=== PATIENT | male | born 1945 | race Caucasian/White ===

== ENCOUNTER 2023-06-22 09:01 | Outpatient (RCR) | payer MEDICARE, OTHER, SELFPAY | END 2023-06-22 23:59 | disposition home or self-care (01) | LOC: RPT 09:01 | PROVIDERS: ATTENDING PHYSICIAN Physical Medicine & Rehabilitation; FAMILY PHYSICIAN Internal Medicine | DX: M47.814 Spondylosis without myelopathy or radiculopathy, thoracic region (principal); Z73.6 Limitation of activities due to disability | CPT/HCPCS: 97010; 97110; 97162 ==

== ENCOUNTER → 2023-07-14 07:41 | Outpatient (REF) | payer MEDICARE, OTHER, SELFPAY | LOC: RAD 07:41 | PROVIDERS: ATTENDING PHYSICIAN Surgery Vascular Surgery; FAMILY PHYSICIAN Internal Medicine | DX: I73.9 Peripheral vascular disease, unspecified (principal) | CPT/HCPCS: 93922; 93925 ==

== ENCOUNTER 2023-07-20 06:54 | Outpatient (RCR) | payer MEDICARE, OTHER, SELFPAY | END 2023-07-20 23:59 | disposition home or self-care (01) | LOC: RPT 06:54 | PROVIDERS: ATTENDING PHYSICIAN Physical Medicine & Rehabilitation; FAMILY PHYSICIAN Internal Medicine | DX: M47.814 Spondylosis without myelopathy or radiculopathy, thoracic region (principal); M47.816 Spondylosis without myelopathy or radiculopathy, lumbar region; M51.26 Other intervertebral disc displacement, lumbar region; Z73.6 Limitation of activities due to disability; R26.89 Other abnormalities of gait and mobility | CPT/HCPCS: 97010; 97110 ==

== ENCOUNTER 2023-08-08 06:09 | Day surgery (SDC) | payer MEDICARE, OTHER, SELFPAY ==
[2023-08-08] VITALS (22 sets, daily range): BP systolic 124–164; BP diastolic 44–70; BMI 27.5
[2023-08-08] MEDS: NSS 500 IV ×2 (06:30)
[2023-08-08 06:52] LABS: Hematocrit 40.9 % (39.0-52.0); Hemoglobin 13.5 g/dL (13.0-18.0); Mean Corpuscular Volume 96.9 fL (80.0-94.0); Mean Platelet Volume 10.8 fL (7.4-10.4); Platelet Count 156 10^3/uL (130-400); Red Blood Cell Count 4.22 10^6/uL (4.70-6.10); Red Cell Dist. Width 13.5 % (11.5-14.5); White Blood Cell Count 3.5 10^3/uL (4.8-10.8)
[2023-08-08 06:59] LABS: APTT 33.8 Sec (23.4-35.0); Blood Urea Nitrogen 17 mg/dl (9-20); Calcium 9.2 mg/dl (8.4-10.2); Carbon Dioxide 29 mmol/L (22-30); Chloride 104 mmol/L (98-107); Estimated Creatinine Clearance 53 ml/min; Glucose 106 mg/dl (70-99); INR 1.26; PT 15.6 Sec (11.4-14.6); Sodium 141 mmol/L (135-145); eGFR > 60.00
--- NOTE | 2023-08-08 07:10 | W.SUR.PREOP ---
Pre-Operative Surgical Note
-
I have examined this patient prior to the performance of the scheduled procedure.
The patient's condition is unchanged from the time of the current History and
Physical and the patient is able to undergo the scheduled procedure.
--- NOTE | 2023-08-08 08:18 | W.SUR.POST ---
Surgical Immediate Post Op
Note
Pre Op Diagnosis: PAD
Post Op Diagnosis: same
Procedure Performed: Right lower extremity arteriogram, balloon angioplasty right common iliac artery
Primary Surgeon: Sean
Anesthesia: Local and sedation
Estimated Blood Loss: <2cc
Fluids: See anesthesia flowsheet
Drains/Shunts: none
Specimens/Cultures: None
Doppler/Duplex/Angio (Y/N): Y
Complications: None
Operative Findings: Successful angioplasty
[2023-08-08] MEDS: NSS 1000 IV (09:55)
--- NOTE | 2023-08-08 11:01 | PTCARENOTE ---
Dr Estrada at pt bedside speaking to pt.
--- NOTE | 2023-08-08 11:40 | PTCARENOTE ---
Pt c/o LLQ abdominal pain rated 2/10 and described as 'aching'. Left groin site clean, dry, and intact. No bleeding or hematoma noted. Sharona FORD made aware via tigertext. Awaiting response. Will continue to monitor.
--- NOTE | 2023-08-08 12:10 | PTCARENOTE ---
Sharona FORD at pt bedside assessing pt's LLQ discomfort. Sharona FORD asked pt to attempt to urinate via urinal at this time to see of that gives pt some relief. No further treatment ordered at this time. Will continue to monitor.
--- NOTE | 2023-08-08 12:27 | W.PN.UPDATE ---
Addendum entered and electronically signed by LOGAN Jorgensen 08/08/23 14:59:
Pt was able to void with full pain relief. Ready for discharge
Original Note:
Update Note
Progress Note Update
Pt complaining of RLQ and suprapublic discomfort. tender to palpation. left groin site soft, NT, c/d/i. Pt voided small amount with no relief to abdominal pain. Bladder scan revealed greater than 600. Straight cath ordered
--- NOTE | 2023-08-08 12:43 | PTCARENOTE ---
Addendum entered by Rufina Forman RN 08/08/23 12:51:
Sharona FORD states to hold cat scan for now until after straight cath.
Original Note:
Sharona FORD ordered to bladder scan pt for abdominal pain. Pt bladder scanned for >652 ml urine. Sharona FORD made aware and ordered to straight cath pt.
--- NOTE | 2023-08-08 12:50 | PTCARENOTE ---
Sharona FORD ordered a CT abdomen for pt's abdominal pain. Sharona FORD asked to bladder scan pt before cat scan.
--- NOTE | 2023-08-08 13:10 | PTCARENOTE ---
After explaining to the pt multiple times the importance of straight cath, pt is declining and asking to speak to Sharona FORD. Pt states he is having less pain and doesn't understand why he can't wait an hour or so until he can get out of bed.
Awaiting Sharona's arrival.
--- NOTE | 2023-08-08 13:19 | PTCARENOTE ---
Sharona FORD at pt bedside speaking to pt about straight cath.
--- NOTE | 2023-08-08 13:20 | PTCARENOTE ---
Sharona FORD spoke to pt and agreed to allow pt to ambulate to bathroom 5 hours post hemostasis. Will get pt out of bed 5 hours post hemostasis to ambulate pt to the bathroom.
--- NOTE | 2023-08-08 14:15 | PTCARENOTE ---
Pt ambulated to the bathroom without difficulty. Pt states he urinated in 'his normal pattern.' Sharona FORD made aware and states pt ok for discharge at 2:30pm as scheduled.
--- NOTE | 2023-08-08 14:16 | PTCARENOTE ---
Dr Estrada at pt bedside speaking to pt.
--- NOTE | 2023-08-08 15:50 | OR.RPT ---
Operative Report
Operative Report
PROCEDURE DATE: 08/08/2023
Preoperative diagnosis: Debilitating right calf claudication.
Postoperative diagnosis: Same
Procedure:
1. Duplex assisted left common femoral artery cannulation.
2. Aortogram and pelvic angiogram.
3. Right lower extremity arteriogram with third order vessel catheterization of right superficial femoral artery via left common femoral artery puncture.
4. Balloon angioplasty of right common iliac artery with 8 mm angioplasty balloon.
5. Left femoral angiogram.
6. Supervision and interpretation.
Surgeon: Sean
Substance Addiction Coordinator: None
Complications: None
Anesthesia: Local, sedation
Fluoroscopy:
18.3 min
151 mGy
22.07 Gy.cm2
Indications for procedure:
Patient with severe right lower extremity claudication brought for angiography. Risk/benefits/alternatives all fully discussed. Patient understood all wish to proceed.
Description of procedure:
Patient was identified, brought to the operating room. Placed on the table in the supine position. After the adequate administration of anesthesia, the patient was prepped and draped in the standard surgical fashion. A standard preoperative
timeout was undertaken and everybody was in agreement with the plan.
The left common femoral artery was accessed with a micropuncture kit under direct duplex ultrasound guidance. A 5 [place] sheath was then advanced over a 0.035 inch wire, and a lopez's hook catheter was advanced into the abdominal aorta.
Aortogram and pelvic angiogram was obtained. Findings as follows:
Infrarenal aorta: [Patent with no significant stenosis]
Right common iliac artery: Patent with moderate to high-grade proximal stenosis with irregular plaque.
Right external iliac artery:[Patent with no significant stenosis]
Left common iliac artery:[Patent with no significant stenosis]
Left external iliac artery:[Patent with no significant stenosis]
Using a floppy angled hydrophilic wire, the right common femoral artery was cannulated and the catheter was advanced. Right lower extremity arteriogram was obtained. Findings as follows:
Common femoral artery: Patent with no significant stenosis.
Profunda femoris artery: Patent with no significant stenosis.
Superficial femoral artery: Diffuse areas of heavy plaque. Alternating areas of mild to moderate stenoses. Heavy plaque noted even on plain fluoroscopy. Distal superficial femoral artery with focal 1 cm occlusion with heavy bulky plaque noted.
Reconstituted distal SFA and popliteal flow.
Popliteal artery: Abyaz-rmo-bxxj popliteal artery with luminal irregularities, behind the knee popliteal artery with opacity suggesting fairly bulky plaque. Extending into the below the knee segment. However the vessel is patent.
Anterior tibial artery: Patent with no significant stenosis, some luminal irregularities proximally. Distally on the foot the dorsalis pedis is a very small string-like artery with collateralization.
Tibial peroneal trunk: Patent with eccentric calcified plaque, but no significant stenosis.
Peroneal artery: Patent proximally but became diminutive more distally and no significant filling distally at the ankle noted.
Posterior tibial artery: Patent proximally and then severely stenotic and then occluded.
At this point I selectively cannulated the right superficial femoral artery and then exchanged for a 6 [place] up and over sheath. The patient was given an appropriate dose of heparin. Next using a flopping on hydrophilic wire and a CXI catheter
was able to gain wire access into the distal superficial femoral artery. I got to the region of occlusion. I then tried multiple times to traverse the occlusion intraluminally. Was unable to do so. I therefore then exchanged for a 0.014 inch
wire (steerable) and tried with that. Unable to do so. I therefore then used a 0.035 inch floppy hydrophilic wire again and tried subintimal he. However again was unable to. The plaque was too bulky. This was not achievable. Therefore at this
point I felt nothing further endovascularly to offer for the SFA stenosis/disease. At this point I then withdrew my sheath to the origin of the right common iliac artery and reimage that area. I confirmed severe irregular plaque resulting in
stenosis. Next I used an 8 mm angioplasty balloon to balloon angioplasty of that segment. Completion angiogram demonstrated excellent result with no significant residual stenosis. At this point is very satisfied. Left femoral angiogram
demonstrated good puncture in the left common femoral artery. Therefore the wires and catheters were withdrawn. The sheath was withdrawn and manual pressure was applied to the puncture site. Patient was given protamine to reverse the heparin.
Hemostasis in the left groin was fully achieved.
The patient tolerated procedure well.
== END 2023-08-08 14:35 | disposition home or self-care (01) ==
LOC: CATH 06:09
PROVIDERS: ATTENDING PHYSICIAN Surgery Vascular Surgery; FAMILY PHYSICIAN Internal Medicine
DX: I70.211 Atherosclerosis of native arteries of extremities with intermittent claudication, right leg (principal); I10 Essential (primary) hypertension; J45.909 Unspecified asthma, uncomplicated; E78.5 Hyperlipidemia, unspecified; M51.36 Other intervertebral disc degeneration, lumbar region; I25.10 Atherosclerotic heart disease of native coronary artery without angina pectoris; Z79.01 Long term (current) use of anticoagulants
CPT/HCPCS: 37220; C1725; 75625; 75716; 76937; 80048; 85027; 85610; 85730; 86850; 86900; 86901; C1769; C1887; C1894

== ENCOUNTER 2023-08-19 06:19 | Outpatient (RCR) | payer MEDICARE, OTHER, SELFPAY | END 2023-08-19 23:59 | disposition home or self-care (01) | LOC: RPT 06:19 | PROVIDERS: ATTENDING PHYSICIAN Physical Medicine & Rehabilitation; FAMILY PHYSICIAN Internal Medicine | DX: M47.814 Spondylosis without myelopathy or radiculopathy, thoracic region (principal); M47.816 Spondylosis without myelopathy or radiculopathy, lumbar region; M51.36 Other intervertebral disc degeneration, lumbar region; Z73.6 Limitation of activities due to disability | CPT/HCPCS: 97010; 97110; 97112 ==

== ENCOUNTER → 2023-09-08 09:56 | Outpatient (REF) | payer MEDICARE, OTHER, SELFPAY | LOC: RAD 09:56 | PROVIDERS: ATTENDING PHYSICIAN Surgery Vascular Surgery; FAMILY PHYSICIAN Internal Medicine | DX: I73.9 Peripheral vascular disease, unspecified (principal) | CPT/HCPCS: 93922; 93925; 93978 ==

== ENCOUNTER 2023-09-09 19:16 | Emergency (ER) | payer MEDICARE, OTHER, SELFPAY ==
[2023-09-09 19:21] VITALS: BP 174/117
[2023-09-09 19:43] LABS: % Basophils 0.2 % (0-2); % Eosinophils 2.2 % (0-6); % Immature Granulocytes 0.2 % (0-0.5); % Lymphocytes 29.4 % (20.5-51.1); % Monocytes 10.3 % (1.7-9.3); % Neutrophils 57.7 % (42.2-75.2); Absolute Eosinophils 0.1 10^3/uL (0-0.7); Absolute Lymphocytes 1.5 10^3/uL (1.2-3.4); Absolute Monocytes 0.5 10^3/uL (0.1-0.6); Absolute Neutrophils 2.9 10^3/uL (1.4-6.5); Hematocrit 39.1 % (39.0-52.0); Hemoglobin 13.5 g/dL (13.0-18.0); Mean Corp Hgb Conc. 34.5 g/dL (33.0-37.0); Mean Corpuscular Volume 92.7 fL (80.0-94.0); Mean Platelet Volume 10.2 fL (7.4-10.4); Nucleated Red Blood Cells % 0 % (-); Platelet Count 141 10^3/uL (130-400); Red Blood Cell Count 4.22 10^6/uL (4.70-6.10); Red Cell Dist. Width 13.4 % (11.5-14.5); White Blood Cell Count 4.9 10^3/uL (4.8-10.8)
[2023-09-09 19:58] LABS: ALT (SGPT) 36 U/L (0-50); AST (SGOT) 38 U/L (17-59); Albumin 4.7 g/dl (3.5-5.0); Alkaline Phosphatase 53 U/L (38-126); Blood Urea Nitrogen 21 mg/dl (9-20); Calcium 9.8 mg/dl (8.4-10.2); Carbon Dioxide 29 mmol/L (22-30); Chloride 102 mmol/L (98-107); Glucose 100 mg/dl (70-99); Potassium 4.2 mmol/L (3.5-5.1); Sodium 138 mmol/L (135-145); Total Bilirubin 0.8 mg/dl (0.2-1.3); Total Protein 7.4 g/dl (6.3-8.2); eGFR > 60.00
[2023-09-09 20:05] LABS: Troponin I < 0.012 ng/ml
[2023-09-09 21:07] VITALS: BP 193/81
[2023-09-09] MEDS: APRESOLINE 10 MG PO (21:21)
[2023-09-09 21:30] VITALS: BMI 27.5
[2023-09-09 21:42] LABS: INR 1.71; PT 19.9 Sec (11.4-14.6)
[2023-09-09 22:00] VITALS: BP 175/69
--- NOTE | 2023-09-09 22:07 | ED.GENMED ---
History of Present Illness
General
Chief Complaint: Blood Pressure Problem
Source: patient
Time Seen by Provider: 09/09/23 20:38
Travel History
Have you had any contact with someone who has COVID-19?: No
Do you have any symptoms of coronavirus? Fever > 100 degrees, chills, cough, shortness of breath, sore throat, loss of taste or smell, muscle aches, or headache?: No
History of Present Illness
History of Present Illness:
78-year-old male presents to the emergency room complaining of elevated blood pressure. Patient states he has been experiencing elevated blood pressure for the past couple weeks. His primary care doctor added hydrochlorothiazide yesterday to his
medication regiment. Patient states he feels shaky but denies headache, chest pain, shortness of breath. Because it has been elevated he is checking his blood pressure frequently. Patient has been taking vitamin K recently as a supplement.
Past History
Past History
ED Past Medical History: Arrthythmia (AFib), CAD, Hypercholesterolemia and Valvular disease
ED Past Surgical History: Cardiac
Social History
Tobacco: Non-smoker
Personal:
Living: with family
Phy Exam
Physical Exam
Physical Exam:
General: Awake, Alert, Oriented X3. No acute distress.
Vitals: unremarkable
Head: Atraumatic
Eyes: Pupils equal, EOMI
Throat: Airway intact, no exudates
Neck: Trachea midline
Lungs: Clear and equal b/l
Heart: Regular rate, no murmurs
Abd: Soft, Nontender, No pulsatile mass
Neuro: Cranial nerves intact, muscle strength equal bilaterally
Skin: Warm, dry, no rash
Extremities: pulses equal b/l, no edema
Course
Orders/Labs/Results
Orders:
Orders
09/09/23 19:25
Electrocardiogram (*1) Urgent
Reason for Study: Hypertension, Benign
EKG- Treatment ONCE
09/09/23 19:38
Complete Blood Count/With Diff Urgent
Comprehensive Metabolic Panel Urgent
Troponin I Urgent
09/09/23 20:56
Cardiac Monitoring- Treatment ONCE
09/09/23 21:03
HydrALAZINE [Apresoline] 10 mg PO NOW STA
09/09/23 21:07
Prothrombin Time Urgent
09/09/23 22:39
Urinalysis Urgent
Date Specimen was Collected: 09/09/23
Time Specimen was Collected: 21:16
Abnormal Lab Results
09/09/23 09/09/23
19:38 21:07
RBC 4.22 L 10^6/uL
(4.70-6.10)
MCH 32.0 H pg
(27.0-31.0)
Monocytes % 10.3 H %
(1.7-9.3)
PT 19.9 H Sec
(11.4-14.6)
BUN 21 H mg/dl
(9-20)
Glucose 100 H mg/dl
(70-99)
09/09/23 19:38
09/09/23 19:38
Vital Signs
Initial and Last Documented VS:
Initial Vital Signs
Temp Pulse Resp BP Pulse Ox
97.7 F 70 18 174/117 97
09/09/23 19:21 09/09/23 19:21 09/09/23 19:21 09/09/23 19:21 09/09/23 19:21
Last Documented Vital Signs
Temp Pulse Resp BP Pulse Ox
97.7 F 72 18 158/72 95
09/09/23 19:21 09/09/23 23:51 09/09/23 23:51 09/09/23 23:51 09/09/23 23:51
MDM/Problems Addressed
Differential Diagnosis Includes:
Uncontrolled hypertension, hypertensive emergency, heart failure
MDM/Problems Addressed:
Clinically patient does not appear to be in heart failure. He does not have any evidence for end-organ damage. Labs are reassuring. BP improved with small dose of hydralazine. Patient stable for discharge. Will recommend he continue his
hydrochlorothiazide was recently started and also increase metoprolol to 50 mg twice daily.
Chronic conditions affecting care: HTN, CAD and Asthma
*Pulse Oximetry
Patient hypoxic: no
*EKG
Interpreted by ED Provider?: Yes
Interpretation: abnormal
Heart Rate: 67
Rate: normal
Rhythm: sinus
Interval: first degree heart block
Ischemia: non-specific ST changes
*Web Offset Press Feeder Interpretation
Rate: normal
Interpretation: normal
Rhythm: sinus
*Critical Care Note
Total Time (30-74mins, 75-104mins- exclusive of procedures): Not Applicable
ED Attending Note
-
Portions of this chart may have been created with voice recognition software.� Occasional wrong word or��sound alike� substitutions may have occurred due to the inherent limitations of voice recognition software.
Discharge Plan
Departure
Patient Disposition: Home (Routine Discharge)
Date of Disposition: 09/09/23
Time of Disposition: 23:38
Patient with high blood pressure during this ER visit?: Yes
Condition: Good
Discharge Problem:
Hypertension
Instructions: High Blood Pressure (DC)
Prescriptions:
No Action
tamsulosin [Flomax] 0.4 MG capsule
0.8 mg PO HS
Patient Comments:
at bedtime
ezetimibe 10 MG tablet
10 mg PO HS
warfarin [Jantoven] 2 MG tablet
6 mg PO MOSA
metoprolol succinate 50 mg Tablet Extended Release 24 Hr
25 mg PO DAILY
warfarin 2 mg Tablet
4 mg PO SUTUWETHFR
lisinopril 40 mg Tablet
40 mg PO DAILY
xwwyhhrbvfwu-sytuzkqt-fcpaux Tablet
1 tab PO DAILY
coenzyme Q10 [CoQ-10] 100 mg Capsule
200 mg PO DAILY
pregabalin 75 mg Capsule
75 mg PO BID
oxybutynin chloride 5 mg Tablet
5 mg PO HS
aspirin 81 mg Tablet,Delayed Release (Dr/Ec)
81 mg PO DAILY
acetaminophen [Tylenol 8 Hour] 650 mg Tablet Extended Release
650 mg PO Q12H
rosuvastatin 20 mg Tablet
20 mg PO SUMOTUTHFRSA
rosuvastatin 20 mg Tablet
40 mg PO WE
metoprolol succinate 50 mg Tablet Extended Release 24 Hr
50 mg PO HS
ferrous sulfate [iron] 325 mg (65 mg iron) Tablet
325 mg PO DAILY
Referrals:
Tommie Kramer MD [Family Provider] -
Activity Restrictions/Additional Instructions:
Increase your metoprolol to 50mg twice a day (from 25 in the morning and 50 at night). Stop taking Vitamin K supplement. Continue all of your other current medications. Follow up with your doctor next week for a blood pressure recheck.
Interventions
Interventions:
*Risk Screen - Suicide Last Done: 09/09/23 23:00
*General Assessment Last Done: 09/09/23 23:15
*Neglect/Abuse Screening Last Done: 09/09/23 23:20
ED- Fall Risk Assessment Last Done: 09/09/23 21:30
*ED COVID-19 Vaccine History Last Done: 09/09/23 23:10
*Nursing Disposition Last Done: 09/09/23 23:51
ED- Cardiac Assessment Last Done: 09/09/23 21:30
ED- Neurological Assessment Last Done: 09/09/23 21:30
ED- Pulmonary Assessment Last Done: 09/09/23 21:30
Discharge Date and Time
Discharge Date/Time: 09/09/23 23:56
Print Language: YORUBA
[2023-09-09 22:48] LABS: Urine Albumin Negative (Neg - Trace); Urine Bilirubin Negative (Negative); Urine Character Clear (Clear); Urine Color Yellow; Urine Glucose Negative (Negative); Urine Ketone Negative (Negative); Urine Leukocyte Negative (Negative); Urine Nitrite Negative (Negative); Urine Occult Blood Negative (Negative); Urine Urobilinogen Negative (Neg - 1+); Urine pH 6.5 (5.0-9.0)
[2023-09-09 23:13] VITALS: BP 158/72
[2023-09-09 23:51] VITALS: BP 158/72
== END 2023-09-09 23:56 | disposition home or self-care (01) ==
LOC: EMR 19:16
PROVIDERS: Emergency Medicine; EMERGENCY PHYSICIAN Emergency Medicine; FAMILY PHYSICIAN Internal Medicine
DX: I10 Essential (primary) hypertension (principal); I44.0 Atrioventricular block, first degree; I48.91 Unspecified atrial fibrillation; I25.10 Atherosclerotic heart disease of native coronary artery without angina pectoris; E78.00 Pure hypercholesterolemia, unspecified; I38 Endocarditis, valve unspecified; Z79.01 Long term (current) use of anticoagulants; Z88.1 Allergy status to other antibiotic agents; Z88.3 Allergy status to other anti-infective agents; Z91.040 Latex allergy status; Z88.0 Allergy status to penicillin; Z88.2 Allergy status to sulfonamides; Z91.048 Other nonmedicinal substance allergy status
CPT/HCPCS: 99283; 80053; 81003; 84484; 85025; 85610; 93005

== ENCOUNTER 2023-09-16 08:44 | Outpatient (RCR) | payer MEDICARE, OTHER, SELFPAY | END 2023-09-16 23:59 | disposition home or self-care (01) | LOC: RPT 08:44 | PROVIDERS: ATTENDING PHYSICIAN Physical Medicine & Rehabilitation; FAMILY PHYSICIAN Internal Medicine | DX: M47.814 Spondylosis without myelopathy or radiculopathy, thoracic region (principal); M47.816 Spondylosis without myelopathy or radiculopathy, lumbar region; M51.26 Other intervertebral disc displacement, lumbar region; M51.36 Other intervertebral disc degeneration, lumbar region; Z73.6 Limitation of activities due to disability | CPT/HCPCS: 97010; 97110; 97112 ==

== ENCOUNTER → 2023-09-22 08:49 | Outpatient (REF) | payer MEDICARE, OTHER, SELFPAY | LOC: RAD 08:49 | PROVIDERS: ATTENDING PHYSICIAN Surgery Vascular Surgery; FAMILY PHYSICIAN Internal Medicine | DX: I73.9 Peripheral vascular disease, unspecified (principal) | CPT/HCPCS: 93975 ==

== ENCOUNTER → 2023-09-26 09:27 | Outpatient (REF) | payer MEDICARE, OTHER, SELFPAY ==
[2023-09-26 10:03] LABS: INR 1.43; PT 17.3 Sec (11.4-14.6)
== END ==
LOC: REG 09:27
PROVIDERS: ATTENDING PHYSICIAN Internal Medicine Cardiovascular Disease; FAMILY PHYSICIAN Internal Medicine
DX: I48.0 Paroxysmal atrial fibrillation (principal)
CPT/HCPCS: 36415; 85610

== ENCOUNTER 2023-09-28 06:52 | Emergency (ER) | payer MEDICARE, OTHER, SELFPAY ==
[2023-09-28 06:56] VITALS: BP 217/83
[2023-09-28 07:08] VITALS: BP 156/62
[2023-09-28 07:35] VITALS: BMI 29.1
[2023-09-28 08:00] VITALS: BP 144/49
--- NOTE | 2023-09-28 08:06 | ED.GENMED ---
History of Present Illness
General
Chief Complaint: Blood Pressure Problem
Time Seen by Provider: 09/28/23 08:02
Travel History
Have you had any contact with someone who has COVID-19?: No
Do you have any symptoms of coronavirus? Fever > 100 degrees, chills, cough, shortness of breath, sore throat, loss of taste or smell, muscle aches, or headache?: No
History of Present Illness
History of Present Illness:
HPI: Patient presents due to elevated blood pressure concerns. Of note, he did have epidural spinal injection yesterday. Nearly asymptomatic high BP readings at home (only felt 'cold'). Had been on Metoprolol / Lisinopril then BPs started spiking
3wks ago - seen in ED 09/08 (had unremarkable labs then) and Metoprolol increased. Hyman changed to Coreg 25mg bid w/ the Lisinopril. Today, had SBP around 215 this am at home, called cardiology, told to come here.
EXAM:
GENERAL: Well appearing in no distress, initial triage vital signs show blood pressure 217/83 with heart rate of 58. I personally performed a manual blood pressure shortly after arrival and was down to 140s over 70s.
HEENT: Moist oral mucosa
CARDIOVASCULAR: II/ BETHANY RUSB, regular rhythm with frequent ectopy, No chest wall tenderness
PULMONARY: No respiratory distress, breath sounds are clear and equal
ABDOMEN: Soft with no peritoneal signs, no tenderness
NEUROLOGIC: Excellent strength all extremities, no coordination deficits
PSYCHIATRIC: Appropriate mental status, normal insight and judgement
EXTREMITIES: Nontender, no edema, moves all extremities equally
SKIN: No rash, no lesions
TIME OF INITIAL ENCOUNTER: 8:05 AM
NUMBER AND COMPLEXITY OF PROBLEMS ADDRESSED AT THE ENCOUNTER
� Chronic conditions affecting care: Asthma/COPD, aortic stenosis status post aortic valve replacement 11/06, A-fib, CAD/CABG x 2, high blood pressure, hyperlipidemia, BPH
� Acute Exacerbation and/or Progression of Chronic Illness: This is an acute exacerbation of chronic problem
� Differential Diagnosis includes: Hypertensive urgency/emergency, anxiety unlikely, labile hypertension
AMOUNT AND/OR COMPLEXITY OF DATA TO BE REVIEWED AND ANALYZED
� I performed an independent evaluation of and my interpretation is:
EKG: Sinus 62, frequent atrial and ventricular ectopy, first-degree AV block at [address]:
X-rays:
Laboratory Studies:
Other:
� Review of other/old records: I reviewed the notes from last visit, I also reviewed lab test from 3 weeks ago which were unremarkable
� Clinical information was obtained by an independent historian: I spoke to the at bedside
� Prescriptions/Medications Considered but not given:
� Further testing considered but not performed: The patient just had labs from a few weeks ago which I reviewed
RISK OF COMPLICATIONS AND/OR MORBIDITY OR MORTALITY OF PATIENT MANAGEMENT
� Social determinants of health affecting care: Lives at home
� Discussion with other providers: Discussed the case with Dr. Carranza adding hydralazine
� Escalation of care including admission/observation vs risk of discharge considered: The patient's blood pressure currently after he took his morning dose of carvedilol is now 140s over 70s manually. The patient has a follow-up
appoint with Dr. Hyman next month but I encouraged him to call her earlier if there are ongoing concerns.
Past History
Past History
ED Past Medical History: Arrthythmia (AFib), CAD, Hypercholesterolemia and Valvular disease
ED Past Surgical History: Cardiac
Social History
Tobacco: Non-smoker
Personal:
Living: with family
Phy Exam
Physical Exam
Physical Exam:
See HPI
Course
Orders/Labs/Results
Orders:
Orders
09/28/23 08:27
Electrocardiogram (*1) Urgent
Reason for Study: Palpitations
EKG- Treatment ONCE
Vital Signs
Initial and Last Documented VS:
Initial Vital Signs
Temp Pulse Resp BP Pulse Ox
98.2 F 58 18 217/83 100
09/28/23 06:56 09/28/23 06:56 09/28/23 06:56 09/28/23 06:56 09/28/23 06:56
Last Documented Vital Signs
Temp Pulse Resp BP Pulse Ox
98.2 F 48 11 144/49 98
09/28/23 06:56 09/28/23 08:00 09/28/23 08:00 09/28/23 08:00 09/28/23 08:00
*Critical Care Note
Total Time (30-74mins, 75-104mins- exclusive of procedures): Not Applicable
ED Attending Note
-
Portions of this chart may have been created with voice recognition software.� Occasional wrong word or��sound alike� substitutions may have occurred due to the inherent limitations of voice recognition software.
Discharge Plan
Departure
Patient Disposition: Home (Routine Discharge)
Date of Disposition: 09/28/23
Time of Disposition: 08:28
Patient with high blood pressure during this ER visit?: Yes
Discharge Problem:
Labile essential hypertension
Prescriptions:
New
hydralazine 10 mg tablet
10 mg PO TID Qty: 90 0RF
No Action
tamsulosin [Flomax] 0.4 MG capsule
0.8 mg PO HS
Patient Comments:
at bedtime
ezetimibe 10 MG tablet
10 mg PO HS
warfarin 2 mg Tablet
6 mg PO SUWETHFR
lisinopril 40 mg Tablet
40 mg PO DAILY
ejbnirmgrjzu-gqwhydxp-srxkhr Tablet
1 tab PO DAILY
coenzyme Q10 [CoQ-10] 100 mg Capsule
200 mg PO DAILY
pregabalin 75 mg Capsule
75 mg PO BID
oxybutynin chloride 5 mg Tablet
5 mg PO HS
aspirin 81 mg Tablet,Delayed Release (Dr/Ec)
81 mg PO DAILY
acetaminophen [Tylenol 8 Hour] 650 mg Tablet Extended Release
650 mg PO Q12H
rosuvastatin 20 mg Tablet
20 mg PO SUMOTUTHFRSA
rosuvastatin 20 mg Tablet
40 mg PO .2 TIMES A WEEK
carvedilol 25 mg Tablet
25 mg PO BID
Referrals:
Tommie Kramer MD [Family Provider] -
Jacklyn Hyman MD [Active] - Follow up in 2-3 days
Activity Restrictions/Additional Instructions:
I spoke to Dr. Jurado, Dr. Hyman's partner, he recommends adding hydralazine 3 times per day. I sent a prescription for this to your pharmacy. Return here if worse. Follow-up with Dr. Hyman as an outpatient.
Interventions
Interventions:
*Risk Screen - Suicide Last Done: 09/28/23 06:56
*Neglect/Abuse Screening Last Done: 09/28/23 06:56
*ED COVID-19 Vaccine History Last Done: 09/28/23 06:56
ED- Cardiac Assessment Last Done: 09/28/23 07:44
ED- Neurological Assessment Last Done: 09/28/23 07:44
ED- Pulmonary Assessment Last Done: 09/28/23 07:45
Discharge Date and Time
Print Language: [id number]
== END 2023-09-28 08:40 | disposition home or self-care (01) ==
LOC: EMR 06:52
PROVIDERS: EMERGENCY PHYSICIAN Emergency Medicine; FAMILY PHYSICIAN Internal Medicine; OTHER PHYSICIAN Internal Medicine Cardiovascular Disease
DX: I10 Essential (primary) hypertension (principal); E78.00 Pure hypercholesterolemia, unspecified; I25.10 Atherosclerotic heart disease of native coronary artery without angina pectoris; I48.91 Unspecified atrial fibrillation; I38 Endocarditis, valve unspecified
CPT/HCPCS: 99283; 93005

== ENCOUNTER → 2023-10-10 06:34 | Outpatient (REF) | payer MEDICARE, OTHER, SELFPAY | LOC: MRI 06:34 | PROVIDERS: ATTENDING PHYSICIAN Physical Medicine & Rehabilitation; FAMILY PHYSICIAN Internal Medicine | DX: M54.12 Radiculopathy, cervical region (principal) | CPT/HCPCS: 72141 ==

== ENCOUNTER → 2023-10-13 11:28 | Outpatient (REF) | payer MEDICARE, OTHER, SELFPAY | LOC: RAD 11:28 | PROVIDERS: ATTENDING PHYSICIAN Internal Medicine | DX: R06.02 Shortness of breath (principal) | CPT/HCPCS: 71046 ==

== ENCOUNTER 2023-10-19 06:40 | Outpatient (RCR) | payer MEDICARE, OTHER, SELFPAY | END 2023-10-20 07:33 | disposition home or self-care (01) | LOC: RPT 06:40 | PROVIDERS: ATTENDING PHYSICIAN Physical Medicine & Rehabilitation; FAMILY PHYSICIAN Internal Medicine | DX: M47.814 Spondylosis without myelopathy or radiculopathy, thoracic region (principal); M47.816 Spondylosis without myelopathy or radiculopathy, lumbar region; M51.36 Other intervertebral disc degeneration, lumbar region; Z73.6 Limitation of activities due to disability | CPT/HCPCS: 97110; 97112 ==

== ENCOUNTER → 2023-10-25 10:26 | Outpatient (REF) | payer MEDICARE, OTHER, SELFPAY ==
[2023-10-25 11:20] LABS: INR 1.44; PT 17.4 Sec (11.4-14.6)
== END ==
LOC: REG 10:26
PROVIDERS: ATTENDING PHYSICIAN Internal Medicine Cardiovascular Disease; FAMILY PHYSICIAN Physical Medicine & Rehabilitation
DX: I48.0 Paroxysmal atrial fibrillation (principal)
CPT/HCPCS: 36415; 85610

== ENCOUNTER → 2023-11-18 07:08 | Outpatient (REF) | payer MEDICARE, OTHER, SELFPAY | LOC: HWRCS 07:08 | PROVIDERS: ATTENDING PHYSICIAN Internal Medicine Cardiovascular Disease | DX: I25.10 Atherosclerotic heart disease of native coronary artery without angina pectoris (principal); Z95.2 Presence of prosthetic heart valve; I50.31 Acute diastolic (congestive) heart failure | CPT/HCPCS: 93306 ==

== ENCOUNTER → 2023-12-16 13:01 | Outpatient (REF) | payer MEDICARE, OTHER, SELFPAY | LOC: RAD 13:01 | PROVIDERS: ATTENDING PHYSICIAN Internal Medicine Cardiovascular Disease; FAMILY PHYSICIAN Internal Medicine | DX: I25.10 Atherosclerotic heart disease of native coronary artery without angina pectoris (principal); R60.0 Localized edema; R06.9 Unspecified abnormalities of breathing | CPT/HCPCS: 93971 ==

== ENCOUNTER → 2023-12-20 09:06 | Outpatient (REF) | payer MEDICARE, OTHER, SELFPAY | LOC: RAD 09:06 | PROVIDERS: ATTENDING PHYSICIAN Internal Medicine Cardiovascular Disease; FAMILY PHYSICIAN Internal Medicine | DX: I25.10 Atherosclerotic heart disease of native coronary artery without angina pectoris (principal); R60.0 Localized edema; R06.09 Other forms of dyspnea | CPT/HCPCS: 71275; Q9967 ==

== ENCOUNTER → 2024-02-07 09:02 | Outpatient (REF) | payer MEDICARE, OTHER, SELFPAY ==
[2024-02-07 10:20] LABS: INR 1.29; PT 15.9 Sec (11.4-14.6)
== END ==
LOC: REG 09:02
PROVIDERS: ATTENDING PHYSICIAN Internal Medicine Cardiovascular Disease; FAMILY PHYSICIAN Internal Medicine; REFERRING PHYSICIAN Physical Medicine & Rehabilitation
DX: I48.0 Paroxysmal atrial fibrillation (principal)
CPT/HCPCS: 36415; 85610

== ENCOUNTER → 2024-02-28 09:56 | Outpatient (REF) | payer MEDICARE, OTHER, SELFPAY | LOC: RAD 09:56 | PROVIDERS: ATTENDING PHYSICIAN Surgery Vascular Surgery; FAMILY PHYSICIAN Internal Medicine | DX: I73.9 Peripheral vascular disease, unspecified (principal); I70.1 Atherosclerosis of renal artery | CPT/HCPCS: 93922; 93925; 93975; 93978 ==

== ENCOUNTER → 2024-07-17 11:51 | Outpatient (REF) | payer MEDICARE, OTHER, SELFPAY ==
[2024-07-17 12:09] LABS: % Basophils 0.2 % (0-2); % Eosinophils 3.3 % (0-6); % Lymphocytes 20.9 % (20.5-51.1); % Monocytes 8.7 % (1.7-9.3); % Neutrophils 66.9 % (42.2-75.2); Absolute Eosinophils 0.2 10^3/uL (0-0.7); Absolute Monocytes 0.4 10^3/uL (0.1-0.6); Absolute Neutrophils 3.1 10^3/uL (1.4-6.5); Hematocrit 32.7 % (39.0-52.0); Hemoglobin 10.5 g/dL (13.0-18.0); Mean Corp Hgb Conc. 32.1 g/dL (33.0-37.0); Mean Corpuscular Hgb 31.3 pg (27.0-31.0); Mean Corpuscular Volume 97.3 fL (80.0-94.0); Mean Platelet Volume 10.4 fL (7.4-10.4); Platelet Count 153 10^3/uL (130-400); Red Blood Cell Count 3.36 10^6/uL (4.70-6.10); Red Cell Dist. Width 13.6 % (11.5-14.5); White Blood Cell Count 4.6 10^3/uL (4.8-10.8)
== END ==
LOC: OIDL 11:51
PROVIDERS: ATTENDING PHYSICIAN Internal Medicine Hematology & Oncology
DX: D61.818 Other pancytopenia (principal)
CPT/HCPCS: 85025

== ENCOUNTER 2024-07-19 09:30 | Outpatient (RCR) | payer MEDICARE, OTHER, SELFPAY | END 2024-07-20 10:16 | disposition home or self-care (01) | LOC: PURB 09:30 | PROVIDERS: ATTENDING PHYSICIAN Internal Medicine Critical Care Medicine; FAMILY PHYSICIAN Internal Medicine | DX: J98.4 Other disorders of lung (principal) | CPT/HCPCS: G0237; G0239 ==

== ENCOUNTER 2024-08-16 09:30 | Outpatient (RCR) | payer MEDICARE, OTHER, SELFPAY | END 2024-08-20 09:19 | disposition home or self-care (01) | LOC: PURB 09:30 | PROVIDERS: ATTENDING PHYSICIAN Internal Medicine Critical Care Medicine; FAMILY PHYSICIAN Internal Medicine | DX: J98.4 Other disorders of lung (principal) | CPT/HCPCS: G0239 ==

== ENCOUNTER 2024-09-18 09:30 | Outpatient (RCR) | payer MEDICARE, OTHER, SELFPAY | END 2024-09-19 11:04 | disposition home or self-care (01) | LOC: PURB 09:30 | PROVIDERS: ATTENDING PHYSICIAN Internal Medicine Critical Care Medicine; FAMILY PHYSICIAN Internal Medicine | DX: J98.4 Other disorders of lung (principal) | CPT/HCPCS: G0239 ==

== ENCOUNTER 2024-10-02 09:30 | Outpatient (RCR) | payer MEDICARE, OTHER, SELFPAY | END 2024-10-03 13:42 | disposition home or self-care (01) | LOC: PURB 09:30 | PROVIDERS: ATTENDING PHYSICIAN Internal Medicine Critical Care Medicine; FAMILY PHYSICIAN Internal Medicine | DX: J98.4 Other disorders of lung (principal) | CPT/HCPCS: G0239 ==

== ENCOUNTER 2024-10-04 15:30 | Outpatient (RCR) | payer SELFPAY | END 2024-10-04 23:59 | disposition home or self-care (01) | LOC: PURBM 15:30 | PROVIDERS: ATTENDING PHYSICIAN Internal Medicine Critical Care Medicine | DX: J98.4 Other disorders of lung (principal) ==

== ENCOUNTER 2024-11-07 06:26 | Day surgery (SDC) | payer MEDICARE, OTHER, SELFPAY | END 2024-11-07 11:37 | disposition home or self-care (01) | LOC: GI 06:26 | PROVIDERS: ATTENDING PHYSICIAN Specialist | DX: D50.9 Iron deficiency anemia, unspecified (principal); K64.8 Other hemorrhoids; K57.30 Diverticulosis of large intestine without perforation or abscess without bleeding; K31.811 Angiodysplasia of stomach and duodenum with bleeding; K31.89 Other diseases of stomach and duodenum; D12.3 Benign neoplasm of transverse colon; K29.50 Unspecified chronic gastritis without bleeding | CPT/HCPCS: 45380; 43239; 88305; 88342 ==

== ENCOUNTER → 2025-01-03 09:37 | Outpatient (REF) | payer MEDICARE, OTHER, SELFPAY | LOC: RCS 09:37 | PROVIDERS: ATTENDING PHYSICIAN Internal Medicine | DX: I49.9 Cardiac arrhythmia, unspecified (principal); R00.1 Bradycardia, unspecified | CPT/HCPCS: 93225; 93226 ==

== ENCOUNTER → 2025-01-08 13:58 | Outpatient (REF) | payer MEDICARE, OTHER, SELFPAY | LOC: MRI 3T 13:58 | PROVIDERS: ATTENDING PHYSICIAN Physician Assistant; FAMILY PHYSICIAN Internal Medicine | DX: M25.562 Pain in left knee (principal) | CPT/HCPCS: 73721 ==

== ENCOUNTER → 2025-01-23 07:28 | Outpatient (REF) | payer MEDICARE, OTHER, SELFPAY | LOC: RAD 07:28 | PROVIDERS: ATTENDING PHYSICIAN Surgery Vascular Surgery; FAMILY PHYSICIAN Internal Medicine | DX: I73.9 Peripheral vascular disease, unspecified (principal); I70.1 Atherosclerosis of renal artery | CPT/HCPCS: 93922; 93925; 93975; 93978 ==